=== PATIENT | male | born 1985 | race Caucasian/White ===

== ENCOUNTER → 2021-10-07 | Outpatient (CLI) | payer OTHER ==
[2021-10-07 07:39] LABS: POTASSIUM 3.9 mmol/L (3.5-5.1)
[2021-10-07 07:40] LABS: ALBUMIN 4.5 g/dL (3.5-5.0)
[2021-10-07 07:41] LABS: CALCIUM 9.9 mg/dL (8.3-10.5)
[2021-10-07 07:42] LABS: TOTAL PROTEIN 7.4 g/dL (6.4-8.3)
[2021-10-07 07:44] LABS: TOTAL BILIRUBIN 0.8 mg/dL (0.2-1.2)
== END ==
LOC: LAB 07:16
PROVIDERS: Family Medicine
DX: Z00.00 Encounter for general adult medical examination without abnormal findings (principal); Z13.220 Encounter for screening for lipoid disorders; Z13.1 Encounter for screening for diabetes mellitus; R41.840 Attention and concentration deficit